=== PATIENT | female | born 1980 | race Two or more races ===

== ENCOUNTER 2017-12-02 05:28 | Emergency (ER) | payer MEDICAID ==
[~2017-12-02] VITALS: Ht 160 cm; Wt 72.6 kg
[2017-12-02 05:39] VITALS: BP 122/77
[2017-12-02] MEDS ORDERED: KETOROLAC TROMETH 60MG/2ML VIAL IM ONE (07:15)
== END 2017-12-02 08:38 | disposition home or self-care (01) ==
LOC: ER 05:28
DX: S16.1XXA Strain of muscle, fascia and tendon at neck level, initial encounter (principal); S39.012A Strain of muscle, fascia and tendon of lower back, initial encounter; V48.0XXA Car driver injured in noncollision transport accident in nontraffic accident, initial encounter; Y93.89 Activity, other specified; Y99.8 Other external cause status; Y92.411 Interstate highway as the place of occurrence of the external cause
CPT/HCPCS: 72040; 72100; 96372; 99284; J1885

== ENCOUNTER 2019-04-05 02:38 | Emergency (ER) | payer MEDICAID ==
[~2019-04-05] VITALS: Ht 160 cm; Wt 68.0 kg
[2019-04-05] MEDS ORDERED: HYDROcodone-ACET 10/325MG TAB PO ONE (04:30)
[2019-04-05] MEDS ORDERED: DexAMETHasone SOD PHOS 10MG/1ML VIAL INJ IM ONE (04:30)
[2019-04-05] MEDS ORDERED: BACLOFEN 10 MG TAB PO ONE (04:30)
[2019-04-05 04:58] VITALS: BP 120/70
== END 2019-04-05 04:59 | disposition home or self-care (01) ==
LOC: ER 02:42
DX: S70.02XA Contusion of left hip, initial encounter (principal); M62.838 Other muscle spasm; M54.2 Cervicalgia; W11.XXXA Fall on and from ladder, initial encounter; Y93.01 Activity, walking, marching and hiking; Y92.89 Other specified places as the place of occurrence of the external cause; Y99.8 Other external cause status
CPT/HCPCS: 73700; 96372; 99284; J1100

== ENCOUNTER 2024-05-04 17:38 | Emergency (ER) | payer MEDICAID ==
[~2024-05-04] VITALS: Ht 160 cm; Wt 80.5 kg
[2024-05-04 18:17] LABS: COVID19 ANTIGEN SOFIA FIA NEGATIVE (NEGATIVE); Rapid Influenza A Negative (Negative); Rapid Influenza B Negative (Negative)
--- NOTE | 2024-05-04 18:41 | DVH ---
CHEST RADIOGRAPH Indication: Cough Technique: Single frontal view of the chest was obtained Comparison: None FINDINGS: Lines and Tubes: None Lungs: No focal consolidation. Pleura: No effusion. No pneumothorax. Cardiomediastinal contours: Unremarkable Bones: No acute osseous abnormality. IMPRESSION: 1. No acute cardiopulmonary disease.
[2024-05-04] MEDS ORDERED: LORA-483 PO (20:02)
[2024-05-04] MEDS ORDERED: BENZ100C97 PO (20:02)
--- NOTE | 2024-05-04 20:03 | ED.PDOC ---
SOB-HPI HPI Comments This patient is a pleasant but morbidly obese 43-year-old female who arrives to the ED today with complaints of cough for the past three days. Patient states the cough has been consistent and relatively unrelenting. Patient denies any fever nausea or vomiting. Patient denies any productive nature occult. Patient denies any history of asthma or pulmonary concerns. Vital signs were stable on arrival. Chief Complaint: Cough Time Seen by MD: 17:42 Primary Care Provider: NONE Reviewed notes: Nurses Notes Information Source: Patient Mode of Arrival: Ambulatory Severity: Moderate Timing: Days Duration: Since onset Context: At Rest PE Risk Factors: None History of: None Prehospital treatment: None Modifying Factors: Nothing Associated Signs and Symptoms: Cough If cough with SOB: Non-Productive Past Medical History PAST MEDICAL HISTORY: Denies Surgical History: Denies all surgeries ACOUSTICAL ENGINEER History: Denies all ACOUSTICAL ENGINEER Hx Family History Family History: Unknown Social History Smoker: Non-Smoker Alcohol: Denies ETOH Use Drugs: Denies Drug Use Lives In: Home Constitutional: denies: chills, diaphoresis, fatigue, fever, malaise, sweats, weakness, others EENTM: denies: blurred vision, double vision, ear bleeding, ear discharge, ear drainage, ear pain, ear ringing, eye pain, eye redness, hearing loss, mouth pain, mouth swelling, nasal discharge, nose bleeding, nose congestion, nose pain, photophobia, tearing, throat pain, throat swelling, voice changes, others Respiratory: reports: cough; denies: hemoptysis, orthopnea, SOB at rest, shortness of breath, SOB with excertion, stridor, wheezing, others Cardiovascular: denies: chest pain, dizzy spells, diaphoresis, Dyspnea on exertion, edema, irregular heart beat, left arm pain, lightheadedness, palpitations, PND, syncope, others Gastrointestinal: denies: abdomen distended, abdominal pain, blood streaked bowels, constipated, diarrhea, dysphagia, difficulty swallowing, hematemesis, melena, nausea, poor appetite, poor fluid intake, rectal bleeding, rectal pain, vomiting, others Genitourinary: denies: abnormal vagina bleeding, burning, dyspareunia, dysuria, flank pain, frequency, hematuria, incontinence, pain, , vagina dischar ge, urgency, others Neurological: denies: dizziness, fainting, headache, left sided numbness, left sided weakness, numbness, paresthesia, pre-existing deficit, right sided numbness, right sided weakness, seizure, speech problems, tingling, tremors, weakness, others Musculoskeletal: denies: back pain, gout, joint pain, joint swelling, muscle pain, muscle stiffness, neck pain, others Integumetry: denies: bruises, change in color, change in hair/nails, dryness, laceration, lesions, lumps, rash, wounds, others Allergic/Immunocompromised: denies: Difficulty Healing, Frequent Infections, Hives, Itching, others Hematologic/Lymphatic: denies: anemia, blood clots, easy bleeding, easy bruising, swollen glands, others Endocrine: denies: excessive hunger, excessive sweating, excessive thirst, excessive urination, flushing, intolerance to cold, intolerance to heat, unexplained weight gain, unexplained weight loss, others Psychiatric: denies: anxiety, bipolar disorder, depression, hopeless, panic disorder, schizophrenia, sleepless, suicidal, others Physical Exam General Appearance: Mild Distress (Due to coughing concerns.), Normal HEENT: Normal ENT Inspection, Pharynx Normal, TMs Normal Neck: Full Range of Motion, Non-Tender, Normal, Normal Inspection Respiratory: Chest Non-Tender, Lungs Clear, No Accessory Muscle Use, No Respiratory Distress, Normal Breath Sounds, Other (Unremarkable auscultation telma ateral lung villasenor.) Cardiovascular: No Edema, No JVD, No Murmur, No Gallop, Normal Peripheral Pulses, Regular Rate/Rhythm Breast Exam: Deferred Gastrointestinal: No Organomegaly, Non Tender, No Pulsatile Mass, Normal Bowel Sounds, Soft Genitalia: Deferred Pelvic: Deferred Rectal: Deferred Extremities: No calf tenderness, Normal capillary refill, Normal inspection, Normal range of motion, Non-tender, No pedal edema Neurologic: Alert, executive account manager II-XII nml as Tested, No Motor Deficits, Normal Affect, Normal Mood, No Sensory Deficits Cerebellar Function: Normal Reflexes: Normal Skin: Dry, Normal Color, Warm Lymphatic: No Adenopathy Was a procedure done? Was a procedure done?: No Differential Dx Differential Diagnosis: Bronchitis, Pneumonia, URI, Other (Influenza a/B, COVID-19) X-Ray, Labs, Meds, VS Vital Signs Date Time Temp Pulse Resp B/P (MAP) Pulse Ox O2 Delivery O2 Flow Rate FiO2 05/04/24 17:46 97.5 101 20 119/79 (92) 98 05/04/24 17:46 20 98 Room Air* 0 21 Lab Test 05/04/24 17:48 Range/Units Influenza Type A Antigen Negative Negative Influenza Type B Antigen Negative Negative SARS-CoV-2 Antigen (Rapid) Negative NEGATIVE X-Ray, Labs, Meds, VS Comment All studies performed the ED were evaluated by me personally. Swabs were unremarkable for influenza or COVID. Chest x-ray was unremarkable for any consolidation or intrapulmonary concerns. Due to the lack of fever or other concerns. This patient may be suffering from allergic concerns. I will send the patient home with some supplemental medication. Advised good hydration throughout. If symptoms continue, patient will need to follow up with primary care provider for possible discussion related to allergies. Time of 1ST Reevaluation: 20:00 Reevaluation 1ST: Unchanged Consultation: PCP Patient Education/Counseling: Diagnosis, Treatment Family Education/Counseling: Diagnosis, Treatment Departure 1 Departure Time of Disposition: 20:01 Impression: Primary Impression: Allergies Disposition: 01 HOME / SELF CARE / HOMELESS Condition: Stable Additional Instructions: Advise utilizing medication as directed as well as additional medication as needed. This concern may be allergic related and therefore, if symptoms continue, patient should follow up with primary care provider. e-Prescriptions Benzonatate (Benzonatate) 100 Mg Cap 1 CAP PO TID, #20 CAP Prov: VARINDER WEBER PAC 05/04/24 Loratadine (CLARITIN TABLET) 10 Mg Tb 10 MG PO DAILY for 14 Days, #14 TAB Prov: VARINDER WEBER [facility] 05/04/24 Discharged With: Self, Friend Critical Care Note Critical Care Time?: No Stability Stability form required: No Heart Score Heart Score: Heart Score Response (Comments) Value History N/A 0 EKG N/A 0 Age N/A 0 Risk Factors N/A 0 Troponin N/A 0 Total 0 VARINDER WEBER PAC May 04, 2024 20:03
[2024-05-04 22:05] VITALS: BP 122/68; PULSE 71; RESP 20; TEMP 98.1; O2SAT 100
== END 2024-05-04 22:07 | disposition home or self-care (01) ==
LOC: ER 17:38
DX: R05.9 Cough, unspecified (principal); Z20.822 Contact with and (suspected) exposure to COVID-19
CPT/HCPCS: 36415; 71045; 87426; 87804